=== PATIENT | female | born 1955 | race Caucasian/White ===

== ENCOUNTER 2020-08-09 16:07 | Emergency (ER) | payer OTHER ==
[2020-08-09 17:32] LABS: HEMOGLOBIN 12.6 gm/dl (12.3-15.3); RED BLOOD COUNT 3.74 M/UL (4.00-5.10); WHITE BLOOD COUNT 6.9 K/UL (4.5-11.0)
[2020-08-09 17:59] LABS: BUN/CREATININE RATIO 27 (0-10)
[2020-08-09] MEDS ORDERED: OMNICEF 300 MG300 MG PO (21:26)
[2020-08-09] MEDS ORDERED: GLUCOPHAGE 500500 MG GT (21:26)
== END 2020-08-09 21:33 | disposition home or self-care (01) ==
LOC: ER1 16:07
PROVIDERS: Physician Assistant
DX: K59.00 Constipation, unspecified (principal); E78.5 Hyperlipidemia, unspecified; I10 Essential (primary) hypertension; E11.9 Type 2 diabetes mellitus without complications; Z79.4 Long term (current) use of insulin; Z90.710 Acquired absence of both cervix and uterus; Z79.899 Other long term (current) drug therapy
CPT/HCPCS: 80053; 81001; 82009; 82962; 85025; 99283